=== PATIENT | female | born 1980 | race Caucasian/White ===

== ENCOUNTER 2019-11-11 06:01 | Day surgery (SDC) | payer OTHER ==
[~2019-11-11] VITALS: Ht 157.5 cm; Wt 57.0 kg
[~2019-11-11 06:01] MED LIST: LIDOCAINE 1% MDV 20ML VIAL SQ PRN
[2019-11-11] MEDS ORDERED: EPINEPHrine INJ 1 MG/ML 1ML AMP ONE ×2 (06:02)
[2019-11-11] MEDS ORDERED: dexameTHASONE 10MG/1ML VIAL PRES.FREE (J1100 PER 1MG) ONE ×2 (06:02)
[2019-11-11] MEDS ORDERED: ROPIvacaine 0.5% 30ML INJECTION (J2795 PER 1MG) ONE ×2 (06:02)
[2019-11-11] MEDS ORDERED: LIDOCAINE 1% MDV 20ML VIAL ONE ×2 (06:02)
[2019-11-11] MEDS ORDERED: ALBU83IN INH (06:24)
[2019-11-11] MEDS ORDERED: [UNRECOGNIZED DRUG - OTHER] (06:24)
[2019-11-11] MEDS ORDERED: ceFAZolin 2 GM/D5W 50 ML IV BAG (J0690 PER 500MG) As Ordered ONE (06:31)
[2019-11-11] MEDS ORDERED: fentaNYL 100 MCG/2 ML INJECTION (J3010) As Ordered ONE (06:35)
[2019-11-11] MEDS ORDERED: MIDAZOLAM INJ 2MG/2ML VIAL (J2250 PER 1MG) As Ordered ONE ×2 (06:35→07:12)
[2019-11-11] MEDS ORDERED: LIDOCAINE 1% MDV 20ML VIAL As Ordered ONE (06:54)
[2019-11-11] MEDS ORDERED: LR 1,000 ML IV ONE (07:00)
[2019-11-11] MEDS ORDERED: ROCURONIUM BROMIDE 50 MG/5 ML VIAL As Ordered ONE (07:11)
[2019-11-11] MEDS ORDERED: propofoL 200 MG/20 ML VIAL As Ordered ONE (07:11)
[2019-11-11] MEDS ORDERED: LIDOCAINE 2% 100MG/5ML SDV (FOR ANES.) As Ordered ONE (07:11)
[2019-11-11] MEDS ORDERED: fentaNYL 250 MCG/5 ML INJECTION (J3010) As Ordered ONE (07:12)
[2019-11-11] MEDS ORDERED: SCOPOLAMINE 1MG TRANSDERMAL PATCH As Ordered ONE (07:17)
[2019-11-11] MEDS: fentaNYL 100 MCG/2 ML INJECTION (J3010) IV SCH ×2 (07:18→07:20)
[2019-11-11] MEDS: MIDAZOLAM INJ 2MG/2ML VIAL (J2250 PER 1MG) IV SCH ×2 (07:18→07:20)
[2019-11-11] MEDS ORDERED: SCOPOLAMINE 1MG TRANSDERMAL PATCH TOP ONE (07:30)
[2019-11-11] MEDS ORDERED: ONDANSETRON 4MG/2ML VIAL As Ordered ONE (08:16)
[2019-11-11] MEDS ORDERED: KETOROLAC 60MG 2ML VIAL As Ordered ONE (08:16)
[2019-11-11] MEDS ORDERED: dexameTHASONE 4 MG/ML 1ML VIAL (J1100 PER 1MG) As Ordered ONE (08:16)
[2019-11-11] MEDS ORDERED: METOCLOPRAMIDE INJ 10MG/2ML VIAL (J2765 PER 1) As Ordered ONE (08:16)
[2019-11-11] MEDS: EPINEPHrine INJ 1 MG/ML 1ML AMP As Ordered ONE (08:16)
[2019-11-11] MEDS ORDERED: ceFAZolin SOD 2 GM in IV 1 EA IV ONE (08:30)
[2019-11-11] MEDS ORDERED: DESFLURANE 240 ML INHALANT As Ordered ONE (08:52)
[2019-11-11] MEDS ORDERED: SUGAMMADEX SODIUM 500 MG/5 ML VIAL (BRIDION) As Ordered ONE (09:01)
[2019-11-11] MEDS ORDERED: ONDANSETRON 4MG/2ML VIAL IV PRN (09:30)
[2019-11-11] MEDS ORDERED: oxyCODONE 5MG TAB PO PRN (09:30)
[2019-11-11] MEDS ORDERED: LR 1,000 ML IV SCH ×2 (09:30→09:45)
[2019-11-11] MEDS ORDERED: METOCLOPRAMIDE INJ 10MG/2ML VIAL (J2765 PER 1) IV PRN (09:30)
[2019-11-11] MEDS ORDERED: MEPERIDINE INJ 25 MG/ML VIAL (J2175) IV PRN (09:30)
[2019-11-11] MEDS ORDERED: fentaNYL 100 MCG/2 ML INJECTION (J3010) IV PRN (09:30)
[2019-11-11 11:50] VITALS: BP 110/58
--- NOTE | 2019-12-01 09:21 | RO ---
DATE OF OPERATION: 11/11/2019 PREOPERATIVE DIAGNOSES: * Right shoulder labral tear. * Right shoulder impingement. * Right shoulder partial thickness rotator cuff tear. POSTOPERATIVE DIAGNOSES: * Right shoulder superior labral tear. * Right shoulder posteroinferior labral tear. * Right shoulder chondromalacia. * Right shoulder impingement. PROCEDURES: * Right shoulder arthroscopic labral debridement and chondroplasty. * Right shoulder open subpectoral biceps tenodesis. * Right shoulder arthroscopic subacromial decompression including acromioplasty. SURGEON: Dr. Charles Mccollum CDL A DRIVER: MARCUS Hudson ANESTHESIA: General. IV FLUID: Lactated Ringer's. ESTIMATED BLOOD LOSS: 10 mL. IMPLANTS: Arthrex proximal BicepsButton x1. CLOSURE: Monocryl and nylon. PROCEDURE: The patient identified in the preoperative holding area and the right shoulder was marked. Written informed consent for the surgical procedure obtained. We discussed her symptoms again. She denied any significant sagging or instability symptoms but did note worsening pain. After interscalene nerve block, she was brought to the operating room, placed supine on a well-padded OR table. General anesthesia was induced. She received appropriate IV antibiotics within one hour of incision. Examination under anesthesia revealed 180 degrees of forward flexion, 90 of external rotation, grade 1 plus anterior and posterior loading shift and grade 1 sulcus sign. She was then placed into the left-side down lateral decubitus position on an axillary roll and all bony prominences were well padded. Bilateral Venodyne boots for DVT prophylaxis. She was secured to the OR table and then the right arm was placed into the Arthrex STaR Sleeve lateral decubitus traction reid with 10 pounds of traction. The right shoulder was prepped and draped in the normal sterile fashion with ChloraPrep. Prior to incision, timeout was performed per hospital protocol. Sobia Rossi was present for the entire procedure and participated in all essential portions of the procedure. This included holding the arthroscope, passing instruments, holding retractors during the biceps tenodesis, assisting with whip stitching the biceps tendon and loading the button. She also assisted with the wound closure, applied the dressing and sling. The right shoulder was insufflated with lactated Ringer's. A standard posterior viewing portal made with an 11 blade. A 30-degree arthroscope was introduced into the joint. Diagnostic arthroscopy carried out revealing chondromalacia to the posterior aspect of the humeral head and a few thin flaps of articular cartilage. There was a superior labral tear with some tearing extending into the long head of the biceps. There was some low-grade fraying of the anterior labrum superiorly. No tearing of the anteroinferior labrum. Inferior labrum at the 6 o'clock position was intact; however, from the 6:30 to 9 o'clock position there was a nondisplaced fissure at the labral/chondral junction. The humeral head was located just inferior to the equator but overall quite central. There was a negative drive-through sign. At this point, there was no indication for labral repair. The articular surface of the rotator cuff was intact; subscapularis intact. An anterior working portal was established through the rotator interval and the shaver was used to perform a chondroplasty of the humeral head. The anterior labral fraying was debrided with the shaver as was the superior labral fraying. Long head of the biceps was used to probe the superior labrum. The biceps labral anchor was unstable and when the long head of the biceps was probed there was a partial longitudinal tear as well. The up-biter was then used to release the long head of the biceps off the superior labrum. Tendon was noted to withdrawn from the joint. The arthroscopy portals were then switched and through the posterior portal the shaver was used to perform a posterior labral debridement and a chondroplasty of the humeral head. From this portal, the humeral head was again noted to be centrally located on the glenoid and I could not subluxate the shoulder either anteriorly or posteriorly confirming no labral repair indicated. The shoulder joint was irrigated and drained. The arthroscope was now placed into the subacromial space where there was moderate bursitis. Through a lateral working portal, I performed a bursectomy with shaver and cautery. There was slight bogginess to the bursal surface of the supraspinatus. This was palpated with a switching stick but there was absolutely no tearing. The cautery was then used to clear soft tissue off the anterior aspect of the acromion and there was a moderate sized spur. The mohit was used to perform a formal acromioplasty turning this into a type 1 morphology. All bony debris was carefully irrigated and debrided with the shaver. Shoulder was irrigated and drained. Portals closed with nylon suture. A 10 blade was used to make a small incision just lateral to the axilla. Subcutaneous dissection with Metzenbaum scissors. Deep fascia was carefully opened with scissors and then the right-angle clamp used to dissect out the long head of the biceps. There was some interstitial tearing consistent with the intraoperative findings. The Arthrex proximal biceps kit was opened and a running, locking whipstitch placed with the FiberLoop. Excess tendon trimmed and sent to pathology. The sutures were loaded through the button per routine and then [facility] retractors used to expose the bicipital groove and the spay-tip drill bit used to drill a unicortical socket within the bicipital groove a centimeter proximal to the lower edge of the pectoralis. Irrigation was used to remove bony debris. Button was passed through the drill hole on its cowlman; sutures were toggled which flipped the button and then a curve-free needle used to pass one limb of the suture back through the tendon outside by hand I locked, the construct in place. This nicely restored the resting tension. I re-irrigated with arthroscopy fluid and then fascia was closed with 2-0 Vicryl, then a 2-0 Vicryl subcuticular closure, running Monocryl and at the end of the case Steri- Strips placed. Portals were closed with nylon suture. A bulky sterile dressing applied. She was placed into the ARC 2.0 sling. She did not require the pillow part of the sling due to no labral repair. She was extubated and transferred to the PACU in stable condition. DISPOSITION: The patient will start physical therapy within 7-10 days. She can start passive- and active-assisted range of motion immediately. I recommend waiting closer to a month to start active range of motion and then no rotator cuff strengthening until 6-8 weeks as tolerated. She can do active elbow flexion and supination but no actual biceps strengthening until closer to 8-10 weeks. MTDD
== END 2019-11-11 12:01 | disposition home or self-care (01) ==
LOC: M SDC 06:01
PROVIDERS: ATTEND Orthopaedic Surgery
DX: M75.41 Impingement syndrome of right shoulder (principal); Z88.1 Allergy status to other antibiotic agents; M94.211 Chondromalacia, right shoulder; S43.431A Superior glenoid labrum lesion of right shoulder, initial encounter; S43.491A Other sprain of right shoulder joint, initial encounter; Y92.89 Other specified places as the place of occurrence of the external cause; Y93.9 Activity, unspecified; Y99.9 Unspecified external cause status
CPT/HCPCS: 23530; 29822; 29826; 64415; 88304; C1713; J0171; J0690; J1100; J1885; J2250; J2405; J2765; J2795; J3010